=== PATIENT | male | born 1950 | race Caucasian/White ===

== ENCOUNTER 2018-08-02 10:10 | Emergency (ER) | payer MEDICARE, MEDICAID ==
--- NOTE | 2018-08-02 10:36 | UC ---
Knee Pain HPI - HPI Summary HPI Summary: 67 yo male presents with LEFT knee/calf pain. He tells me that in 03/2018 he was at a concert and was dancing when he felt a twinge in his left knee and had to stop. The next few days he developed increased pain and some swelling. This eventually subsided over the next 2-3 weeks. Since that time, however, he has been more active doing painting and working on his house - has noticed that the pain now seems to be in his left calf and by the end of the day will have significant swelling. His symptoms improve with rest and ice, but return as soon as he is active again. He states that he is concerned about a blood clot. He denies recent travel, hx of cancer, SOB, chest pain, or instability of the knee. - History of Current Complaint Chief Complaint: UCLowerExtremity Stated Complaint: LT KNEE PAIN/SWELLING Time Seen by Provider: 08/02/18 10:36 Hx Obtained From: Patient Onset/Duration: Gradual Onset Severity Initially: Mild Severity Currently: Mild Pain Intensity: 1 Pain Scale Used: 0-10 Numeric - Allergies/Home Medications Allergies/Adverse Reactions: Allergies Allergy/AdvReac Type Severity Reaction Status Date / Time doxycycline AdvReac GI Upset Verified 08/02/18 10:25 PMH/Surg Hx/FS Hx/Imm Hx - Additional Past Medical History Additional PMH: None - Surgical History Surgical History: None - Family History Known Family History: Positive: Hypertension - Social History Occupation: Retired Lives: With Family Alcohol Use: Daily Alcohol Amount: 1 beer/ day Substance Use Type: None Smoking Status (MU): Never Smoked Tobacco Review of Systems All Other Systems Reviewed And Are Negative: Yes Constitutional: Positive: Negative Skin: Positive: Negative Respiratory: Positive: Negative Cardiovascular: Positive: Negative Neurovascular: Positive: Negative Musculoskeletal: Positive: Other: - Left knee and calf pain Neurological: Positive: Negative Psychological: Positive: Negative Physical Exam - Summary Physical Exam Summary: GENERAL: NAD. WDWN. No pain distress. SKIN: No rashes, sores, lesions, or open wounds. CHEST: No accessory muscle use. Breathing comfortably and in no distress. CV: Pulses intact popliteal, PT, and DP. Cap refill <2seconds. Varicose veins b/ l LEs MSK: LEFT KNEE: FROM. NTTP. Strength 5/5. No edema or obvious bony deformities. No patella apprehension. Negative Mani, A/P drawer, Ethan, and varus/ valgus stress. LEFT CALF: Mild edema. No warmth, TTP. Negative homans. NEURO: Alert. Sensations intact and symmetric B/L LEs PSYCH: Age appropriate behavior. Triage Information Reviewed: Yes Vital Signs: Initial Vital Signs Temp 98 F 08/02/18 10:26 Pulse 67 08/02/18 10:26 Resp 18 08/02/18 10:26 BP 126/84 08/02/18 10:26 Pulse Ox 99 08/02/18 10:26 Vital Signs Reviewed: Yes Knee Pain Course/Dx - Course Course Of Treatment: US: Bilaterally the common femoral veins appear patent and compressible. Left proximal greater saphenous vein, proximal deep femoral vein, femoral vein, popliteal vein, posterior tibial veins appear patent and compressible.One of the paired peroneal veins distally demonstrates no flow and is noncompressible consistent with thrombosis. Popliteal cyst is noted measuring up to 4.0 cm. IMPRESSION: DEEP VENOUS THROMBOSIS OF ONE OF THE PAIRED PERONEAL VEINS IN THE DISTAL CALF. XR: IMPRESSION: OSTEOARTHRITIS. NO ACUTE OSSEOUS INJURY. IF SYMPTOMS PERSIST, RECOMMEND REPEAT IMAGING. Discussed results with the pt. He is otherwise healthy and has no PMHx and does not take any other medications. Will draw for a hypercoag workup and have him f/ u with [facility] next week. Given that his insurance will not approve eliquis - will start him with Xarelto for his DVT. I called and made him an appointment with a PCP Dr. Leticia Myers for 08/10/18 at 10:40am for a recheck and for review of his labwork. We had a long discussion about the risks of blood thinners, such as Xarelto. I made him aware of red flag/danger signs of symptoms such as spontaneous bleeding, joint bruising, abdominal bruising, headaches/vision changes, SOB, and chest pain - if he develops any of these to go to the ER immediately. Also discussed injuries while on blood thinners - especially head injuries. I advised him to be evaluated if he ever sustains a head injury while on the Xarelto, even if he has no symptoms. Pt voiced understanding and all questions were answered. - Differential Dx/Diagnosis Provider Diagnosis: Deep vein thrombosis (DVT) of left lower extremity Discharge - Sign-Out/Discharge Documenting (check all that apply): Patient Departure All imaging exams completed and their final reports reviewed: Yes - Discharge Plan Condition: Stable Disposition: HOME Prescriptions: Rivaroxaban TAB(*) [Xarelto 15 mg(*)] 15 mg PO BID #42 tab Patient Education Materials: Rivaroxaban (By mouth), Deep Vein Thrombosis (ED) , Blood Thinners (ED) Referrals: [facility] [Outside] - As Soon As Possible Leticia Myers DO [Doctor of Osteopathy] - 08/10/18 10:40 am Additional Instructions: If you develop a fever, shortness of breath, chest pain, new or worsening symptoms - please call your PCP or go to the ED immediately. 1) You have a blood clot in your left calf. We have started you with Xarelto ( Rivaroxaban) for this. Please take this as prescribed. 2) You may noticed easy bruising while on this medication as this medication thins your blood. Please be careful and mindful of any injuries that may occur - especially if the injury involves your head. If you have a head injury while on this medication, please be evaluated by a medical provider that same day. 3) If you have bleeding that will not stop with direct pressure, abdominal bruising, spontaneous nosebleeds, gum bleeding, or coughing/vomiting any blood - please go to the ER immediately. 4) I have made you an appointment with [place] [address] [place] [address], [address] On Wednesday08/10/18 at 10:40am. ---- It is very important that you attend this appointment for results of your labwork and recheck of symptoms and new medication. - Billing Disposition and Condition Condition: STABLE Disposition: Home
[2018-08-02 12:46] VITALS: BP 139/76
== END 2018-08-02 12:55 | disposition home or self-care (01) ==
LOC: UCEAST 10:10
DX: I82.4Z2 Acute embolism and thrombosis of unspecified deep veins of left distal lower extremity (principal); I82.402 Acute embolism and thrombosis of unspecified deep veins of left lower extremity
CPT/HCPCS: 99202; G0463